=== PATIENT | female | born 1970 | race Caucasian/White ===

== ENCOUNTER 2020-10-06 02:38 | Emergency (ER) | payer OTHER ==
[2020-10-06] MEDS ORDERED: Adacel Vial IM ONE ×2 (03:08→03:12)
[2020-10-06] MEDS ORDERED: Vibramycin 100 MG PO ONE (03:08)
[2020-10-06] MEDS ORDERED: Vibramycin 100 MG ONE (03:12)
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
[2020-10-06 03:28] VITALS: BP 118/80; PULSE 87; O2SAT 100
== END 2020-10-06 03:28 | disposition home or self-care (01) ==
LOC: ED 02:38
DX: S21.052A Open bite of left breast, initial encounter (principal); W50.3XXA Accidental bite by another person, initial encounter; S20.112A Abrasion of breast, left breast, initial encounter; Y93.F9 Activity, other caregiving; Y92.128 Other place in nursing home as the place of occurrence of the external cause; Y99.0 Civilian activity done for income or pay; N64.4 Mastodynia
CPT/HCPCS: 90471; 90715; 99283; A9270-GY

== ENCOUNTER 2022-01-23 19:20 | Emergency (ER) | payer SELFPAY ==
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
[2022-01-23 19:48] VITALS: O2SAT 98
[2022-01-23] MEDS ORDERED: PERCOCET TABLET 5/325MG PO STA (20:48)
[2022-01-23] MEDS ORDERED: PERCOCET TABLET 5/325MG ONE (20:57)
[2022-01-23 21:14] VITALS: BP 105/75; PULSE 88
--- NOTE | 2022-01-24 08:48 | XRAY ---
Indication: Pain following fall. Comparison: None AP/crosstable lateral left knee demonstrates minimal medial joint space narrowing/spurring. No other bony, articular, or soft tissue abnormalities.
--- NOTE | 2022-01-24 08:48 | XRAY ---
Indication: Pain following fall. Comparison: None 2 view left lower leg demonstrates small plantar heel spur. No other bony, articular, or soft tissue abnormalities.
--- NOTE | 2022-01-24 08:49 | XRAY ---
Indication: Pain following fall. Comparison: None 3 view left ankle demonstrates small plantar heel spur. No other bony, articular, or soft tissue abnormalities.
== END 2022-01-23 21:45 | disposition home or self-care (01) ==
LOC: ED 19:20
DX: M79.662 Pain in left lower leg (principal); V48.4XXA Person boarding or alighting a car injured in noncollision transport accident, initial encounter; Z79.891 Long term (current) use of opiate analgesic
CPT/HCPCS: 73560; 73590; 73610; 99283; A9270-GY

== ENCOUNTER 2024-02-15 06:58 | Day surgery (SDC) | payer SELFPAY ==
--- NOTE | 2024-02-13 10:53 | HP ---
DATE OF SURGERY: 02/15/2024 HISTORY OF PRESENT ILLNESS: The patient is a 54-year-old female presents for endoscopy. She states that she had COVID for a second time. She was having some chocolate milk and having a crushing pain/epigastric pain in the chest. She has a history of laparoscopic cholecystectomy. She took two Rolaids and Prilosec for this intense pain and it helped. She did say that pizza was a trigger. She reports her dad of a mass in the colon/ischemic bowel. The patient's last colonoscopy was over ten years ago. She had no polyps or colon problems. PAST MEDICAL HISTORY: Anxiety, depression. PAST SURGICAL HISTORY: Cholecystectomy. Arm surgery. Hysterectomy. ALLERGIES: KEFLEX. PENICILLIN. IODINATED CONTRAST MEDIA. MEDICATIONS: Lexapro. FAMILY HISTORY: Diabetes, heart disease, ischemic bowel possible colon mass in her father. SOCIAL HISTORY: Negative. REVIEW OF SYSTEMS: CONSTITUTIONAL: Denies fever or chills. CHEST: Denies shortness of breath. CVS: Denies chest pain. ABDOMEN: Reports epigastric pain. PHYSICAL EXAMINATION: GENERAL: No acute distress. CHEST: Nonlabored. No shortness of breath. CVS: Regular rate and rhythm. ABDOMEN: Soft. IMPRESSION: Severe epigastric pain and screening colonoscopy and family history of colon cancer. PLAN: EGD and colonoscopy with Dr. Markel Petty. As dictated by Gladys Sparks NP.
[2024-02-15] MEDS: Lactated Ringers 1,000 ML IV SCH (07:31)
[2024-02-15] MEDS ORDERED: Xylocaine-Mpf 2% 5 Ml Vial ONE (08:40)
[2024-02-15] MEDS ORDERED: DIPRIVAN 200 MG/20 ML IV ONE ×3 (08:40→09:09)
[2024-02-15] MEDS ORDERED: Versed 2 MG/2 ML Injection ONE (08:40)
[2024-02-15] MEDS ORDERED: GlucaGen 1 MG ONE (09:00)
[2024-02-15 09:55] VITALS: RESP 16; TEMP 97.4; O2SAT 99
[2024-02-15 10:13] VITALS: BP 138/88; PULSE 91
--- NOTE | 2024-02-15 10:24 | OP ---
SURGERY DATE/TIME: 02/15/2024 8694 PREOPERATIVE DIAGNOSES: 1) Family history of colon cancer. 2) Epigastric pain, persistent. POSTOPERATIVE DIAGNOSES: 1) Grade 2 over 4 gastroesophageal reflux disease. 2) No hiatal hernia. 3) Sigmoid diverticulosis with a few scattered diverticula otherwise normal. PROCEDURES: 1) EGD. 2) Colonoscopy complete to cecum. SURGEON: Markel Petty M.D. EDUCATION PROFESSOR: Eugenie Abrams M.D., Resident. ANESTHESIA: MAC. COMPLICATIONS: None. CONDITION: Stable. DESCRIPTION OF PROCEDURE: Patient taken to endoscopy. MAC sedation provided. Scope introduced. Vocal cords are normal. Pharyngoesophageal junction normal. Esophagus normal down to gastroesophageal junction. Rim of esophagitis grade 2 over 4. There was about a half ounce of bile in the upper part of the stomach. Fundus, body and antrum normal. Pylorus normal. Duodenal bulb normal. Second portion normal. Scope looped upon itself normal. No hiatal hernia. Scope withdrawn. The bile was suctioned. Anal digital examination satisfactory. Scope advanced to the cecum. It was a little spastic and 2.5 ounces of Glucagon were given. It was sequentially progressed through the sigmoid and descending colon junction which was a little angulated. Scope advanced to the cecum. Base of the cecum, ileocecal valve, appendiceal orifice were normal. Ascending colon normal. There were a few scattered right diverticula and there was moderate diverticulosis of the sigmoid. Rectum, anus satisfactory. IMPRESSION: Basically normal lower examination. PLAN: Follow up in five years. Prep score was excellent. Withdrawal time about six minutes.
== END 2024-02-15 10:18 | disposition home or self-care (01) ==
LOC: SDC 06:58
PROVIDERS: ATTEND Surgery
DX: Z12.11 Encounter for screening for malignant neoplasm of colon (principal); Z80.0 Family history of malignant neoplasm of digestive organs; R10.13 Epigastric pain; K21.9 Gastro-esophageal reflux disease without esophagitis; K57.90 Diverticulosis of intestine, part unspecified, without perforation or abscess without bleeding; Z86.16 Personal history of COVID-19
CPT/HCPCS: J1610; J2250; J2704

== ENCOUNTER 2025-01-03 03:10 | Emergency (ER) | payer MEDICAID ==
[2025-01-03 03:44] VITALS: TEMP 97.6
[2025-01-03] MEDS ORDERED: DUONEB 0.5-3 MG/3 ml Neb IH ONE (04:18)
[2025-01-03] MEDS: DUONEB 0.5-3 MG/3 ml Neb IH ONE (04:20)
[2025-01-03 04:34] LABS: BASOPHIL % 0.5 % (0.1-1.2); Basophil (Absolute #) 0.06 x10^3/uL (0.01-0.08); Eosinophil % 2.4 % (0.7-5.8); Hematocrit 39.1 % (34.1-44.9); Hemoglobin 13.3 g/dL (11.2-15.7); IMMATURE GRAN # 0.07 x10^3u/L (0.001-0.031); IMMATURE GRAN % 0.6 % (0.001-0.429); Lymphocyte (Absolute #) 2.41 x10^3/uL (1.18-3.74); Lymphocytes % 19.7 % (19.3-51.7); Mean Cell Volume 90.9 fL (79.4-94.8); Mean Corpuscular Hemoglobin 30.9 pg (25.6-32.2); Mean Platelet Volume 10.4 fL (9.4-12.3); Monocyte (Absolute #) 0.72 x10^3/uL (0.24-0.86); Monocytes % 5.9 % (4.7-12.5); Neutrophil % 70.9 % (34.0-71.1); Platelet Count 410 x10^3/uL (182-369); Red Cell Distribution Width 13.1 % (11.7-14.4); White Blood Count 12.3 x10^3/uL (3.98-10.04)
[2025-01-03 04:40] LABS: ALBUMIN 4.5 g/dL (3.5-5.0); ANION GAP 15.1 MEQ/L (5-15); BILIRUBIN,TOTAL 0.9 mg/dL (0.2-1.3); Calcium 9.3 mg/dL (8.4-10.2); Creatinine 1 0.86 mg/dL (0.52-1.04); EST GLOMERULAR FILTRATION RATE 79.7 ML/MIN; Potassium 3.9 mmol/L (3.5-5.1); Total Protein 7.5 g/dL (6.3-8.2)
--- NOTE | 2025-01-03 04:40 | ERPHSYRPT ---
- History of Present Illness Time Seen by Provider: 01/03/25 04:07 Source: patient Exam Limitations: no limitations Patient Subjective Stated Complaint: c/o of hypertension Triage Nursing Assessment: patient brought self to ED with c/o hypertension. patient was at work and started to not feel well and states she felt dizzy. she had a coworker take her BP and it was 148/127, patient later felt like she was going to pass out and the second BP was 181/117. Patient's BP is 133/108 upon arrival to the ED. patient states she has a dull chest pressure, skin w/n/d, denies abd. pain, gait steady, patient states she has a tight cough, patient doesn't appear to be in any distress at this time. Physician History: 54-year-old female presented in the ER with complains of feeling of generalized malaise, congestion in the chest, sinus pressure, feeling dizzy last night while at work. She had a blood pressure checked at work which was initially in 140s and later on and 180s. Patient blood pressure is in 130s on presentation in the ER. She denies any chest pain but some soreness all over. Patient reported did hit her all of a sudden. Has some sinus/nasal congestion and pressure. No fever or chills reported. Allergies/Adverse Reactions: cephalexin [From Keflex] Allergy (Verified 01/03/25 03:44) Hives Penicillins Allergy (Verified 01/03/25 03:44) Hives Iodinated Contrast Media Adverse Reaction (Verified 01/03/25 03:44) had stinging sensation on the back of her neck. No hives, dyspnea, or itching. Home Medications: Erythromycin Base 3.5 gm [Erythromycin 3.5 GM OPHTH.] 1 applic OP DAILY 01/03/25 [History] Venlafaxine HCl ER 75 mg [Effexor XR 75 MG] 75 mg PO DAILY 01/03/25 [History] clindamycin HCL [Clindamycin HCl] 300 mg PO BID 01/03/25 [History] Hx Tetanus, Diphtheria Vaccination/Date Given: Yes Hx Influenza Vaccination/Date Given: Yes Hx Pneumococcal Vaccination/Date Given: No Travel Risk - International Travel Have you traveled outside of the country in past 3 weeks: No - Emerging Infectious Disease Are you exhibiting symptoms associated with any current EIDs: No - Review of Systems Constitutional: Fatigue Eyes: No Symptoms Ears, Nose, & Throat: Nose Congestion Respiratory: Cough Cardiac: Chest Pain Abdominal/Gastrointestinal: No Symptoms Musculoskeletal: Myalgias Neurological: Dizziness, Headache Psychological: No Symptoms Endocrine: No Symptoms Hematologic/Lymphatic: No Symptoms - Past Medical History Pertinent Past Medical History: Yes ENT History: No Pertinent History Cardiac History: No Pertinent History Respiratory History: No Pertinent History Endocrine Medical History: No Pertinent History Musculoskeletal History: No Pertinent History GI Medical History: Diverticulosis, GERD History: No Pertinent History Psycho-Social History: Depression Female Reproductive Disorders: No Pertinent History - Past Surgical History Past Surgical History: Yes Gastrointestinal: Cholecystectomy Musculoskeletal: Orthopedic Surgery Female Surgical History: Hysterectomy, Section Other Surgical History: TCFF TEAR ULNER SHORTENED left arm. colonoscopy and egd Significant Family History: no pertinent family hx - Social History Smoking Status: Never smoker Exposure to second hand smoke: No Drug Use: none - Social Determinants of Health Will the patient participate in the screening: Yes Do you worry about a steady place to live?: No Do you have any problems with any of the following?: No known problems In the past 12 months,have you had to go without utilities?: No Transportation Issues: No Has anyone in your support network made you feel unsafe?: No Have you or anyone in your house had to go w/o enough food: No - Nursing Vital Signs Nursing Vital Signs: Initial Vital Signs Temperature 97.6 F 01/03/25 03:27 Pulse Rate 98 H 01/03/25 03:27 Respiratory Rate 19 01/03/25 03:27 Blood Pressure 133/108 01/03/25 03:27 O2 Sat by Pulse Oximetry 97 01/03/25 03:27 Pain Scale Pain Intensity 5 - Physical Exam General Appearance: no apparent distress Eye Exam: PERRL/EOMI Ears, Nose, Throat Exam: moist mucous membranes, pharyngeal erythema Neck Exam: normal inspection, non-tender, supple, full range of motion Respiratory Exam: normal breath sounds, lungs clear Cardiovascular Exam: regular rate/rhythm, normal heart sounds Gastrointestinal/Abdomen Exam: soft, normal bowel sounds, No tenderness Back Exam: normal inspection, normal range of motion Extremity Exam: normal inspection, normal range of motion Neurologic Exam: alert, oriented x 3, cooperative Skin Exam: normal color SpO2 Interpretation: normal SpO2: 100 O2 Delivery: Room Air - Course EKG Interpreted by Me: RATE (93), Sinus Rhythm, NORMAL AXIS, NORMAL INTERVALS, Non-specific ST Changes Ordered Tests: Active Orders 24 hr Category Date Time Status Template Fitter STAT Care 01/03/25 04:09 Active EKG-ER Only STAT Care 01/03/25 04:08 Active CHEST 1 VIEW (PORTABLE) Stat Exams 01/03/25 04:53 Taken CBC W DIFF Stat Lab 01/03/25 04:21 Completed CMP Stat Lab 01/03/25 04:21 Completed TROPONIN Q4H Lab 01/03/25 04:21 Completed TROPONIN Q4H Lab 01/03/25 08:15 Ordered TROPONIN Q4H Lab 01/03/25 12:15 Ordered Respiratory Therapy Assessment DAILY RT 01/03/25 04:34 Active Medication Summary Discontinued Medications Generic Name Dose Route Start Last Admin Trade Name Freq PRN Reason Stop Dose Admin Albuterol/Ipratropium 3 ml 01/03/25 04:08 01/03/25 04:20 Ipratropium/Albuterol Sulfate 3 Ml Ampul.Neb IH 01/03/25 04:09 3 ml STAT ONE Administration Albuterol/Ipratropium Confirm 01/03/25 04:18 Ipratropium/Albuterol Sulfate 3 Ml Ampul.Neb Administered 01/03/25 04:19 Dose 3 ml IH .STK-MED ONE Lab/Rad Data: Laboratory Result Diagrams 01/03/25 04:21 01/03/25 04:21 Laboratory Results 01/03/25 01/03/25 01/03/25 Range/Units 04:21 04:21 04:21 WBC (3.98-10.04) x10^3/uL RBC (3.93-5.22) x10^6/uL Hgb (11.2-15.7) g/dL Hct (34.1-44.9) % MCV (79.4-94.8) fL MCH (25.6-32.2) pg MCHC (32.2-35.5) g/dL RDW (11.7-14.4) % Plt Count (182-369) x10^3/uL MPV (9.4-12.3) fL Gran % (34.0-71.1) % Immature Gran % (Auto) (0.001-0.429) % Nucleat RBC Rel Count (0.00-0.2) % Eos # (Auto) (0.04-0.36) x10^3/uL Immature Gran # (Auto) (0.001-0.031) x10^3u/L Absolute Lymphs (auto) (1.18-3.74) x10^3/uL Absolute Monos (auto) (0.24-0.86) x10^3/uL Absolute Nucleated RBC (0.00-0.012) x10^3u/L Lymphocytes % (19.3-51.7) % Monocytes % (4.7-12.5) % Eosinophils % (0.7-5.8) % Basophils % (0.1-1.2) % Absolute Granulocytes (1.56-6.13) x10^3/uL Basophils # (0.01-0.08) x10^3/uL Sodium 138 (135-145) mmol/L Potassium 3.9 (3.5-5.1) mmol/L Chloride 100 (98-107) mmol/L Carbon Dioxide 27 (22-30) mmol/L Anion Gap 15.1 H (5-15) MEQ/L BUN 21 H (7-17) mg/dL Creatinine 0.86 (0.52-1.04) mg/dL Estimated GFR 79.7 ML/MIN Glucose 112 H (74-106) mg/dL Calcium 9.3 (8.4-10.2) mg/dL Total Bilirubin 0.90 (0.2-1.3) mg/dL AST 34 (14-36) U/L ALT 26 (0-35) U/L Alkaline Phosphatase 119 (38-126) U/L Troponin I < 0.012 (0.000-0.033) ng/mL Serum Total Protein 7.5 (6.3-8.2) g/dL Albumin 4.5 (3.5-5.0) g/dL Influenza Type A Ag NEGATIVE (NEGATIVE) Influenza Type B Ag NEGATIVE (NEGATIVE) RSV (PCR) NEGATIVE (NEGATIVE) SARS-CoV-2 (PCR) NEGATIVE (NEGATIVE) 01/03/25 Range/Units 04:21 WBC 12.3 H (3.98-10.04) x10^3/uL RBC 4.30 (3.93-5.22) x10^6/uL Hgb 13.3 (11.2-15.7) g/dL Hct 39.1 (34.1-44.9) % MCV 90.9 (79.4-94.8) fL MCH 30.9 (25.6-32.2) pg MCHC 34.0 (32.2-35.5) g/dL RDW 13.1 (11.7-14.4) % Plt Count 410 H (182-369) x10^3/uL MPV 10.4 (9.4-12.3) fL Gran % 70.9 (34.0-71.1) % Immature Gran % (Auto) 0.6 H (0.001-0.429) % Nucleat RBC Rel Count 0.0 (0.00-0.2) % Eos # (Auto) 0.30 (0.04-0.36) x10^3/uL Immature Gran # (Auto) 0.07 H (0.001-0.031) x10^3u/L Absolute Lymphs (auto) 2.41 (1.18-3.74) x10^3/uL Absolute Monos (auto) 0.72 (0.24-0.86) x10^3/uL Absolute Nucleated RBC 0.00 (0.00-0.012) x10^3u/L Lymphocytes % 19.7 (19.3-51.7) % Monocytes % 5.9 (4.7-12.5) % Eosinophils % 2.4 (0.7-5.8) % Basophils % 0.5 (0.1-1.2) % Absolute Granulocytes 8.70 H (1.56-6.13) x10^3/uL Basophils # 0.06 (0.01-0.08) x10^3/uL Sodium (135-145) mmol/L Potassium (3.5-5.1) mmol/L Chloride (98-107) mmol/L Carbon Dioxide (22-30) mmol/L Anion Gap (5-15) MEQ/L BUN (7-17) mg/dL Creatinine (0.52-1.04) mg/dL Estimated GFR ML/MIN Glucose (74-106) mg/dL Calcium (8.4-10.2) mg/dL Total Bilirubin (0.2-1.3) mg/dL AST (14-36) U/L ALT (0-35) U/L Alkaline Phosphatase (38-126) U/L Troponin I (0.000-0.033) ng/mL Serum Total Protein (6.3-8.2) g/dL Albumin (3.5-5.0) g/dL Influenza Type A Ag (NEGATIVE) Influenza Type B Ag (NEGATIVE) RSV (PCR) (NEGATIVE) SARS-CoV-2 (PCR) (NEGATIVE) - Progress Progress: improved, re-examined Air Movement: good Progress Note: 01/03/25 06:32 54-year-old is evaluated in the ER for URI symptoms with cough congestion, feeling dizzy with elevated pressure. Patient blood pressure is 133/83 without any intervention. EKG is normal sinus rhythm with no ST elevation. She is given breathing treatment, feeling much better on reevaluation. Workup showed normal white count, chemistries fairly unremarkable and has negative troponin. Patient has negative COVID flu and RSV. Chest x-ray is negative for any acute cardiopulmonary findings reviewed by me, official report is pending. I believe patient's symptoms are viral etiology, recommended supportive care and outpatient follow-up. Discussed signs symptoms of worsening needing return to ER which she seems understanding. Stable for discharge. Complexity of problems addressed: Moderate acute Complexity of data analyzed/reviewed: Moderate Risk of morbidity/mortality patient management.: Moderate risk Blood Culture(s) Obtained: No Antibiotics given: No Counseled pt/family regarding: lab results, diagnosis, need for follow-up, rad results Medical Desision Making - Diagnostic Testing Diagnostic test were ordered, analyzed, and reviewed by me: Yes Radiological Interpretation: Interpreted by me, Reviewed by me - Risk of complications The pt has a mod risk of morbidity or mortality based on: Need for prescription drug management - Departure Departure Disposition: Home Clinical Impression: URI with cough and congestion, Elevated blood pressure reading Condition: Stable Critical Care Time: No Referrals: ANNIE MENARD DO [Primary Care Provider] - Follow up with PCP 1 day Instructions: DASH diet, Upper respiratory infection in adults - Discharge instructions Additional Instructions: Take Tylenol/ibuprofen as needed for. Follow-up with primary care for reevaluation. Monitor your blood pressure regularly, keep a log and follow-up with PCP for reevaluation to be started on antihypertensive. Return to ER for any worsening. Prescriptions: Albuterol Sulfate [Albuterol Sulfate Hfa] 8.5 gm IH Q6H PRN 7 Days #1 inh PRN Reason: Cough
[2025-01-03 05:03] LABS: INFLUENZA A NEGATIVE (NEGATIVE); INFLUENZA B NEGATIVE (NEGATIVE); RESPIRATORY SYNCTIAL VIRUS NEGATIVE (NEGATIVE); SARS-CoV-2 Xpert Express NEGATIVE (NEGATIVE)
[2025-01-03 06:37] VITALS: BP 140/90; PULSE 90; RESP 23
[2025-01-03 06:38] VITALS: O2SAT 100
--- NOTE | 2025-01-03 08:46 | XRAY ---
Indication: Cough. Comparison: None Portable chest demonstrates minimal left base subsegmental atelectasis/scarring. Remaining heart and lungs unremarkable. Bony thorax intact with osteopenia and mild degenerative changes.
== END 2025-01-03 06:55 | disposition home or self-care (01) ==
LOC: ED 03:10
DX: J06.9 Acute upper respiratory infection, unspecified (principal); R05.1 Acute cough; R03.0 Elevated blood-pressure reading, without diagnosis of hypertension; R53.81 Other malaise; R51.9 Headache, unspecified; R42 Dizziness and giddiness; Z79.899 Other long term (current) drug therapy
CPT/HCPCS: 0241U; 36415; 71045; 80053; 84484; 85025; 93005; 93041; 94640; 99285; 99284; A9270-GY

== ENCOUNTER 2025-02-07 20:30 | Emergency (ER) | payer MEDICAID ==
--- NOTE | 2025-02-07 20:35 | ERPHSYRPT ---
- History of Present Illness Time Seen by Provider: 02/07/25 20:34 Source: patient, family Exam Limitations: no limitations Physician History: This is a left handed 55-year-old white female patient who arrives by private vehicle and is a patient Dr. Menard with a dog bite to the volar surface of her right forearm. Patient states that her tetanus is up-to-date having had a tetanus injection 7 years ago. Patient is allergic to Keflex and penicillin. The dog is a family dog and immunizations are up-to-date. Dog was not rabid. Patient has a history of depression and gastroesophageal reflux disease. Timing/Duration: today Quality: painful Severity: mild Location: extremities (Right forearm volar aspect) Possible Causes: other (Dog bite) Associated Symptoms: denies symptoms Allergies/Adverse Reactions: cephalexin [From Keflex] Allergy (Verified 02/07/25 20:37) Hives Penicillins Allergy (Verified 02/07/25 20:37) Hives Iodinated Contrast Media Adverse Reaction (Verified 02/07/25 20:37) had stinging sensation on the back of her neck. No hives, dyspnea, or itching. Home Medications: Venlafaxine HCl ER 75 mg [Effexor XR 75 MG] 150 mg PO DAILY 02/07/25 [History] Hx Tetanus, Diphtheria Vaccination/Date Given: Yes Hx Influenza Vaccination/Date Given: Yes Hx Pneumococcal Vaccination/Date Given: No Travel Risk - International Travel Have you traveled outside of the country in past 3 weeks: No - Emerging Infectious Disease Are you exhibiting symptoms associated with any current EIDs: No - Review of Systems Constitutional: No Symptoms Eyes: No Symptoms Ears, Nose, & Throat: No Symptoms Respiratory: No Symptoms Cardiac: No Symptoms Abdominal/Gastrointestinal: No Symptoms Genitourinary Symptoms: No Symptoms Musculoskeletal: No Symptoms Skin: Other (1 cm horizontally oriented dog bite to skin volar aspect right for earm) Neurological: No Symptoms Psychological: No Symptoms Endocrine: No Symptoms Hematologic/Lymphatic: No Symptoms Immunological/Allergic: No Symptoms All Other Systems: Reviewed and Negative - Past Medical History Pertinent Past Medical History: Yes ENT History: No Pertinent History Cardiac History: No Pertinent History Respiratory History: No Pertinent History Endocrine Medical History: No Pertinent History Musculoskeletal History: No Pertinent History GI Medical History: Diverticulosis, GERD History: No Pertinent History Psycho-Social History: Depression Female Reproductive Disorders: No Pertinent History - Past Surgical History Past Surgical History: Yes Gastrointestinal: Cholecystectomy Musculoskeletal: Orthopedic Surgery Female Surgical History: Hysterectomy, Section Other Surgical History: TCFF TEAR ULNER SHORTENED left arm. colonoscopy and egd Significant Family History: no pertinent family hx - Social History Smoking Status: Never smoker Exposure to second hand smoke: No Drug Use: none - Social Determinants of Health Will the patient participate in the screening: Yes Do you worry about a steady place to live?: No In the past 12 months,have you had to go without utilities?: No Transportation Issues: No Has anyone in your support network made you feel unsafe?: No Have you or anyone in your house had to go w/o enough food: No - Nursing Vital Signs Nursing Vital Signs: Initial Vital Signs Temperature 97.1 F 02/07/25 20:35 Pulse Rate 100 H 02/07/25 20:35 Respiratory Rate 18 02/07/25 20:35 Blood Pressure 158/103 02/07/25 20:35 O2 Sat by Pulse Oximetry 98 02/07/25 20:35 Pain Scale Pain Intensity 8 - Physical Exam General Appearance: no apparent distress, alert, anxiety Eye Exam: PERRL/EOMI, eyes nml inspection Ears, Nose, Throat Exam: normal ENT inspection, moist mucous membranes Neck Exam: normal inspection, non-tender, supple, full range of motion Respiratory Exam: airway intact, No chest tenderness, No respiratory distress Gastrointestinal/Abdomen Exam: No tenderness Rectal Exam: not done Back Exam: normal inspection, normal range of motion, No CVA tenderness, No vertebral tenderness Extremity Exam: normal range of motion, pelvis stable, tenderness (In the area of dog bite to the skin of the volar aspect of the right forearm. No foreign body. No active bleeding. 1 cm skin laceration.), other (Patient shows no evidence of cellulitis. The distal tendons are intact and fully functioning. Patient is neurovascularly intact.) Neurologic Exam: alert, oriented x 3, cooperative, grocery bagger II-XII nml as tested, nml cerebellar function, nml station & gait, sensation nml Skin Exam: other (Dog bite volar aspect right forearm. See above extremity section) Lymphatic Exam: No adenopathy SpO2 Interpretation: normal O2 Delivery: Room Air Procedures - Laceration/Wound Repair Right Volar Other Time of Procedure: 20:45 Wound Location: Right, lower arm (Forearm volar aspect) Wound Length (cm): 1 Wound's Depth, Shape: superficial, linear Wound Explored: clean (Wound explored to the base. There is a bloodless field. No foreign body noted) Irrigated: Yes Hibiclens Prep: Yes Wound Repaired With: Nicko (Single stitch was placed in the middle of the 1 cm dog bite site. This is to loosely approximate the skin edge. I did offer her sutures and she opted for the staple placement) Layer Closure?: No - Course Nursing assessment & vital signs reviewed: Yes Ordered Tests: Medication Summary Discontinued Medications Generic Name Dose Route Start Last Admin Trade Name Freq PRN Reason Stop Dose Admin Clindamycin HCl 300 mg 02/07/25 20:45 Clindamycin Hcl 150 Mg Capsule PO 02/07/25 20:46 STAT ONE Doxycycline Hyclate 100 mg 02/07/25 20:45 Doxycycline Hyclate 100 Mg Tablet PO 02/07/25 20:46 STAT ONE - Progress Progress: improved Progress Note: 02/07/25 20:54 My medical decision making and the assignment of low complexity to this patient's medical issue today is based on review of the patient's past medical history, review of the patient's medication list, review of the patient drug allergy list, history present illness and physical findings on examination. The workup in this patient does not necessitate any laboratory radiographic studies. Differential diagnosis includes but is not limited to dog bite, dog scratch Counseled pt/family regarding: diagnosis, need for follow-up Medical Desision Making - Diagnostic Testing Diagnostic test were ordered, analyzed, and reviewed by me: No - Risk of complications The pt has a mod risk of morbidity or mortality based on: Need for prescription drug management - Departure Departure Disposition: Home Clinical Impression: Dog bite of forearm without complication Condition: Stable Critical Care Time: No Referrals: ANNIE MENARD DO [Primary Care Provider] - Follow up/PCP as directed Additional Instructions: Keep current bandage in place for 24 hours. After 24 hours, you may rinse the s ite off with soapy water blot dry use a assistant hairstylist and reach cover with a nonstick bandage and wrap the site. Change the dressing at least once a day and as needed. Take your antibiotics as prescribed. If you have any concerns about the wound, return to the emergency department for reexamination. If there are no contraindications, use Tylenol and ibuprofen for pain control. You may apply ice pack to the site 2-3 times a day for the next 2 to 3 days. Cover the site with a child before placing the ice pack. Staple removal in 8 to 10 days Prescriptions: Clindamycin HCl 150 mg [Cleocin 150 mg Capsule] 2 cap PO QID #40 cap Doxycycline Hyclate 100 mg [Vibramycin 100 MG] 100 mg PO BID #10 tab
[2025-02-07 20:36] VITALS: RESP 18; TEMP 97.1
[2025-02-07] MEDS ORDERED: CLEOCIN 150 MG CAPSULE ONE (20:50)
[2025-02-07] MEDS ORDERED: Vibramycin 100 MG ONE (20:50)
[2025-02-07] MEDS: Vibramycin 100 MG PO ONE (20:52)
[2025-02-07] MEDS: CLEOCIN 150 MG CAPSULE PO ONE (20:52)
[2025-02-07 21:07] VITALS: BP 155/103; PULSE 92; O2SAT 99
== END 2025-02-07 21:08 | disposition home or self-care (01) ==
LOC: ED 20:30
DX: S51.851A Open bite of right forearm, initial encounter (principal); W54.0XXA Bitten by dog, initial encounter; Z79.899 Other long term (current) drug therapy
CPT/HCPCS: 12001; 99282; 99283; A9270-GY

== ENCOUNTER 2025-02-09 14:30 | Emergency (ER) | payer MEDICAID ==
[2025-02-09 14:37] VITALS: BP 132/91; PULSE 98; TEMP 96.8
--- NOTE | 2025-02-09 14:54 | ERPHSYRPT ---
- History of Present Illness Time Seen by Provider: 02/09/25 14:38 Source: patient Exam Limitations: no limitations Physician History: 55yo f presents via private vehicle for follow up on dog bite that occurred on 02/07/25, was seen in our ED and had 1 staple placed and started on clindamycin and doxycycline. Pt reports she has had some increased swelling around the wound and has had some purulent drainage. Pt denies any fevers at home, denies any pain in the elbow, does endorse some mild discomfort in the wrist. Timing/Duration: day(s) (2) Quality: painful Severity: mild Location: extremities Possible Causes: other (dog bite) Allergies/Adverse Reactions: cephalexin [From Keflex] Allergy (Verified 02/09/25 14:34) Hives Penicillins Allergy (Verified 02/09/25 14:34) Hives Iodinated Contrast Media Adverse Reaction (Verified 02/09/25 14:34) had stinging sensation on the back of her neck. No hives, dyspnea, or itching. Home Medications: Venlafaxine HCl ER 75 mg [Effexor XR 75 MG] 150 mg PO DAILY 02/07/25 [History] Hx Tetanus, Diphtheria Vaccination/Date Given: Yes Hx Influenza Vaccination/Date Given: Yes Hx Pneumococcal Vaccination/Date Given: No Travel Risk - Emerging Infectious Disease Are you exhibiting symptoms associated with any current EIDs: No - Review of Systems Constitutional: No Fever, No Chills, No Night Sweats Respiratory: No Symptoms Cardiac: No Symptoms Skin: Skin Lesions - Past Medical History Pertinent Past Medical History: Yes ENT History: No Pertinent History Cardiac History: No Pertinent History Respiratory History: No Pertinent History Endocrine Medical History: No Pertinent History Musculoskeletal History: No Pertinent History GI Medical History: Diverticulosis, GERD History: No Pertinent History Psycho-Social History: Depression Female Reproductive Disorders: No Pertinent History - Past Surgical History Past Surgical History: Yes Gastrointestinal: Cholecystectomy Musculoskeletal: Orthopedic Surgery Female Surgical History: Hysterectomy, Section Other Surgical History: TCFF TEAR ULNER SHORTENED left arm. colonoscopy and egd Significant Family History: no pertinent family hx - Social History Smoking Status: Never smoker Exposure to second hand smoke: No Drug Use: none - Social Determinants of Health Will the patient participate in the screening: Yes Do you worry about a steady place to live?: No In the past 12 months,have you had to go without utilities?: No Transportation Issues: No Has anyone in your support network made you feel unsafe?: No Have you or anyone in your house had to go w/o enough food: No - Nursing Vital Signs Nursing Vital Signs: Initial Vital Signs Temperature 96.8 F 02/09/25 14:37 Pulse Rate 98 H 02/09/25 14:37 Respiratory Rate 18 02/09/25 14:37 Blood Pressure 132/91 02/09/25 14:37 O2 Sat by Pulse Oximetry 100 02/09/25 14:37 - Physical Exam General Appearance: no apparent distress, alert Respiratory Exam: airway intact, No respiratory distress Cardiovascular Exam: regular rate/rhythm, normal heart sounds, normal peripheral pulses, capillary refill <2 sec, No edema Skin Exam: laceration (1cm laceration, [address], small amount of purulent drainage from wound on anterior right forearm; small puncture wound on posterior aspect w/ minimal purulent drainage; localized erythema surrounding 2 wounds, no streaking proximally from wounds, no pain in elbow joint), other (no axillary lymph node swelling) Lymphatic Exam: No adenopathy SpO2 Interpretation: normal SpO2: 100 O2 Delivery: Room Air - Progress Progress: pain not gone completely Progress Note: 02/09/25 14:58 no streaking proximally, no lymph node involvement in the axilla will give work note for today, may return to work on 02/11/25 recommend completing entire course of antibiotics recommend close PCP follow up tomorrow 02/10/25 - Menard will send course of zofran for GI upset likely related to abx use, recommend plenty of probiotic rich foods recommend use of antibiotic ointment on wounds, continue to use bandage and wrap when up or working return to ED if - develop fevers that do not respond to tylenol, develop pain that is unbearable, develop inability to use the right hand/wrist, swelling spreads into the elbow or armpit 02/09/25 15:05 Counseled pt/family regarding: need for follow-up Medical Desision Making - Diagnostic Testing Diagnostic test were ordered, analyzed, and reviewed by me: No - Risk of complications Minimal Risk: Minimal risk of morbidity - Departure Departure Disposition: Home Clinical Impression: Dog bite of forearm without complication Condition: Stable Critical Care Time: No Referrals: MENARD,ANNIE, DO [Primary Care Provider] - Follow up/PCP as directed Additional Instructions: will give work note for today, may return to work on 02/11/25 recommend completing entire course of antibiotics recommend close PCP follow up tomorrow 02/10/25 - Gutierrez will send course of zofran for GI upset likely related to abx use recommend use of antibiotic ointment on wounds, continue to use bandage and wrap when up or working return to ED if - develop fevers that do not respond to tylenol, develop pain that is unbearable, develop inability to use the right hand/wrist, swelling spreads into the elbow or armpit Prescriptions: Ondansetron ODT 4 MG [Zofran Odt 4 mg] 4 mg PO Q6H PRN PRN #10 tablet PRN Reason: Nausea
[2025-02-09 15:28] VITALS: RESP 22; O2SAT 96
== END 2025-02-09 15:31 | disposition home or self-care (01) ==
LOC: ED 14:30
DX: S51.851D Open bite of right forearm, subsequent encounter (principal); W54.0XXD Bitten by dog, subsequent encounter; Z79.899 Other long term (current) drug therapy
CPT/HCPCS: 99281; 99283